=== PATIENT | male | born 1990 | race Caucasian/White ===

== ENCOUNTER 2020-06-03 09:01 | Outpatient (REF) | payer BC, SELFPAY | END 2020-06-03 09:02 | disposition home or self-care (01) | LOC: HO.LAB 09:01 | PROVIDERS: Visit Provider Internal Medicine | DX: Z20.828 Contact with and (suspected) exposure to other viral communicable diseases (principal) | CPT/HCPCS: C9803; U0003 ==

== ENCOUNTER 2020-07-16 17:08 | Outpatient (REF) | payer BC, SELFPAY | END 2020-07-16 17:09 | disposition home or self-care (01) | LOC: HO.LAB 17:08 | PROVIDERS: PCP Internal Medicine; Visit Provider Internal Medicine | DX: Z20.828 Contact with and (suspected) exposure to other viral communicable diseases (principal) | CPT/HCPCS: C9803; U0003 ==

== ENCOUNTER 2020-08-26 07:44 | Outpatient (REF) | payer BC, SELFPAY | END 2020-08-26 07:45 | disposition home or self-care (01) | LOC: HO.LAB 07:44 | PROVIDERS: Visit Provider Internal Medicine | DX: Z20.822 Contact with and (suspected) exposure to COVID-19 (principal) | CPT/HCPCS: 36415; C9803; U0003; U0005 ==

== ENCOUNTER 2020-09-16 10:31 | Outpatient (REF) | payer BC, SELFPAY | END 2020-09-16 10:32 | disposition home or self-care (01) | LOC: HO.LAB 10:31 | PROVIDERS: Visit Provider Internal Medicine | DX: Z20.822 Contact with and (suspected) exposure to COVID-19 (principal) | CPT/HCPCS: 36415; C9803; U0003; U0005 ==

== ENCOUNTER 2020-09-19 11:24 | Outpatient (REF) | payer BC, SELFPAY | END 2020-09-19 11:25 | disposition home or self-care (01) | LOC: HO.LAB 11:24 | PROVIDERS: Visit Provider Internal Medicine | DX: Z20.822 Contact with and (suspected) exposure to COVID-19 (principal) | CPT/HCPCS: 36415; C9803; U0003; U0005 ==

== ENCOUNTER 2020-10-17 08:35 | Outpatient (REF) | payer OTHER, SELFPAY ==
[2020-10-17 12:39] LABS: SARS COV2 PCR INHOUSE NEGATIVE (Negative)
== END 2020-10-17 08:36 | disposition home or self-care (01) ==
LOC: HO.LAB 08:35
PROVIDERS: Visit Provider Internal Medicine
DX: Z20.822 Contact with and (suspected) exposure to COVID-19 (principal)
CPT/HCPCS: C9803; U0003

== ENCOUNTER 2020-11-15 11:36 | Outpatient (REF) | payer OTHER, SELFPAY ==
[2020-11-15 11:47] LABS: COVID-19 Test Positive (Negative)
== END 2020-11-15 11:37 | disposition home or self-care (01) ==
LOC: HO.LAB 11:36
PROVIDERS: Visit Provider Internal Medicine
DX: Z20.822 Contact with and (suspected) exposure to COVID-19 (principal)
CPT/HCPCS: 36415; 87635; C9803

== ENCOUNTER 2020-11-26 13:21 | Outpatient (REF) | payer OTHER, SELFPAY ==
[2020-11-26 13:45] LABS: COVID-19 Test Positive (Negative)
== END 2020-11-26 13:22 | disposition home or self-care (01) ==
LOC: HO.LAB 13:21
PROVIDERS: Visit Provider Internal Medicine
DX: Z20.822 Contact with and (suspected) exposure to COVID-19 (principal)
CPT/HCPCS: 36415; 87635; C9803

== ENCOUNTER 2020-11-29 12:44 | Outpatient (REF) | payer OTHER, SELFPAY ==
[2020-11-29 12:57] LABS: COVID-19 Test Positive (Negative)
== END 2020-11-29 12:45 | disposition home or self-care (01) ==
LOC: HO.LAB 12:44
PROVIDERS: Visit Provider Internal Medicine
DX: Z20.822 Contact with and (suspected) exposure to COVID-19 (principal)
CPT/HCPCS: 36415; 87635; C9803

== ENCOUNTER 2020-12-06 12:07 | Outpatient (REF) | payer OTHER, SELFPAY ==
[2020-12-06 12:28] LABS: COVID-19 Test Negative (Negative); IDNOW Serial# 55D5AD1C
== END 2020-12-06 12:08 | disposition home or self-care (01) ==
LOC: HO.LAB 12:07
PROVIDERS: Visit Provider Internal Medicine
DX: Z20.822 Contact with and (suspected) exposure to COVID-19 (principal)
CPT/HCPCS: 36415; 87635; C9803

== ENCOUNTER 2020-12-09 11:31 | Outpatient (REF) | payer OTHER, SELFPAY ==
[2020-12-09 11:48] LABS: COVID-19 Test Negative (Negative)
== END 2020-12-09 11:32 | disposition home or self-care (01) ==
LOC: HO.LAB 11:31
PROVIDERS: Visit Provider Internal Medicine
DX: Z20.822 Contact with and (suspected) exposure to COVID-19 (principal)
CPT/HCPCS: 36415; 87635; C9803

== ENCOUNTER 2020-12-10 12:10 | Outpatient (REF) | payer OTHER, SELFPAY ==
[2020-12-10 12:28] LABS: COVID-19 Test Negative (Negative); IDNOW Serial# 55D5AD1C
== END 2020-12-10 12:11 | disposition home or self-care (01) ==
LOC: HO.LAB 12:10
PROVIDERS: Visit Provider Internal Medicine
DX: Z20.822 Contact with and (suspected) exposure to COVID-19 (principal)
CPT/HCPCS: 36415; 87635; C9803

== ENCOUNTER 2021-07-01 11:40 | Outpatient (REF) | payer OTHER, SELFPAY | END 2021-07-01 11:41 | disposition home or self-care (01) | LOC: HO.LAB 11:40 | PROVIDERS: Visit Provider Internal Medicine | DX: Z20.822 Contact with and (suspected) exposure to COVID-19 (principal) | CPT/HCPCS: C9803; U0003; U0005 ==

== ENCOUNTER → 2021-07-21 10:35 | Outpatient (BNVA) | payer OTHER, SELFPAY | PROVIDERS: PCP Internal Medicine; Visit Provider Nurse Practitioner Family ==

== ENCOUNTER → 2021-08-21 11:07 | Outpatient (BNVA) | payer OTHER, SELFPAY | PROVIDERS: PCP Internal Medicine; Visit Provider Nurse Practitioner Family | DX: F07.81 Postconcussional syndrome (principal); G47.9 Sleep disorder, unspecified | CPT/HCPCS: 99212 ==

== ENCOUNTER → 2021-10-29 12:51 | Outpatient (REF) | payer OTHER, SELFPAY | LOC: HO.SL 12:51 | PROVIDERS: Visit Provider Nurse Practitioner Family | DX: G47.19 Other hypersomnia (principal); R06.83 Snoring; G47.9 Sleep disorder, unspecified | CPT/HCPCS: 95806 ==

== ENCOUNTER → 2021-11-10 14:00 | Outpatient (BNVA) | payer OTHER, SELFPAY | PROVIDERS: Visit Provider Nurse Practitioner Family | DX: G47.9 Sleep disorder, unspecified (principal); R06.83 Snoring; G47.19 Other hypersomnia ==

== ENCOUNTER → 2021-11-27 09:58 | Outpatient (BNVA) | payer OTHER, SELFPAY | PROVIDERS: PCP Physician Assistant; Visit Provider Nurse Practitioner Family | DX: G47.9 Sleep disorder, unspecified (principal); R06.83 Snoring; G47.19 Other hypersomnia | CPT/HCPCS: 99212 ==

== ENCOUNTER 2024-04-19 22:38 | Emergency (ER) | payer BC, SELFPAY ==
--- NOTE | ~2024-04-19 | XR_ITS ---
EXAMINATION: XR CHEST CLINICAL INFORMATION: Cough. COMPARISON: Chest 04/25/2018 TECHNIQUE: Frontal view of the chest was obtained. FINDINGS: Normal appearance of the cardiomediastinal structures. No effusions or pneumothoraces. No focal pulmonary consolidation. Normal pattern of pulmonary vasculature. XR/XR chest 1V IMPRESSION: No cardiopulmonary abnormalities identified. Electronically signed by: Craig Ashley MD 04/20/2024 02:32 AM EDT
[2024-04-19 22:42] VITALS: BP 127/76; PULSE 89; RESP 16; TEMP 36.9; O2SAT 95; BMI 39.0
[2024-04-19 23:04] LABS: MANUAL DIFF FLAG NO
[2024-04-19 23:07] LABS: Basophils Absolute Auto 0.1 X10*3/uL (0.0-0.2); Basophils Percent Auto 0.5 % (0-2); Eosinophils Absolute Auto 0.3 X10*3/uL (0.0-0.4); Eosinophils Percent Auto 2.2 % (0-4); Hematocrit 44.4 % (42.0-52.0); Hemoglobin 15.1 g/dl (14.0-18.0); Imm Gran Abs Auto 0.05 X10*3/uL (0.00-0.03); Imm Gran Pct Auto 0.3 % (0.0-0.4); Lymphocytes Absolute Auto 2.8 X10*3/uL (1.2-4.9); Mean Corpuscular Hemoglobin 30.1 pg (27.0-33.0); Mean Corpuscular Volume 88.6 fL (80.0-98.0); Mean Platelet Volume 8.6 fL (9.4-12.4); Monocytes Absolute Auto 1.3 X10*3/uL (0.1-1.2); Monocytes Percent Auto 8.5 % (2-11); Neutrophils Absolute Auto 10.8 x10*3/uL (2.0-8.3); Neutrophils Percent Auto 70.5 % (45-73); Platelet Count 336 X10*3/uL (160-400); Red Blood Count 5.01 X10*6/uL (4.60-5.80); Red Cell Distribution Width 12.5 % (11.0-16.0); White Blood Count 15.4 X10*3/uL (4.8-10.8)
[2024-04-19 23:25] LABS: Anion Gap 13 (12-20); Blood Urea Nitrogen 20 mg/dL (9-16); Calcium 9.4 mg/dL (8.4-10.2); Carbon Dioxide 24 mmol/L (22-29); Chloride 108 mmol/L (96-108); Creatinine Clr Calc Pharmacy 152.1; Estimated Glomerular Filt Rate > 60; Glucose Random 97 mg/dL (60-115); Potassium 4.2 mmol/L (3.3-5.1); Sodium 141 mmol/L (135-145)
[2024-04-19 23:45] LABS: IDNOW Serial# 08D9AD1C; Influenza A PCR NEGATIVE (Negative); Influenza B PCR NEGATIVE (Negative); Resp Syncy Virus RNA Qual PCR NEGATIVE (Negative); SARS COV2 PCR INHOUSE NEGATIVE (Negative); Strep A Nucleic Acid Negative (Negative)
--- NOTE | 2024-04-20 00:40 | ED.GENADULT ---
HPI - General Adult General Chief complaint: General Medical Stated complaint: 'sick as a dog' Time Seen by Provider: 04/20/24 00:35 Source: patient and old records reviewed Mode of arrival: ambulatory Limitations: no limitations History of Present Illness ED Provider: KANG PINEDA narrative: 33 yo male with PMH of ESTELA, prior bariatric surgery here with c/o his son being sick recently and doing okay but he has been sick for the past few days with cough, sore throat, sinus pressure, loose stools. Denies travel history. He is able to eat and drink. He states he feels terrible. He has taken OTC meds and tylenol. MD complaint: URI symptoms Onset (ago): day(s) (few) Location: face, mouth and chest Radiation: non-radiation Severity: moderate Quality: aching and dull Pain Consistency: constant Relieving factors: none Exacerbating factors: other (swallowing, coughing) Associated symptoms: cough, fever/chills, headaches and malaise Treatments prior to arrival: cold therapy Related Data Home Medications ?Medication ?Instructions ?Recorded ?Confirmed cyproheptadine 4 mg tablet See Rx Instructions PO BEDTIME 07/16/21 11/27/21 multivitamin (Daily-Eun tablet) 1 tab PO DAILY 07/16/21 11/27/21 naratriptan 2.5 mg tablet See Rx Instructions PO .COMPLEX 07/16/21 11/27/21 rizatriptan 5 mg tablet See Rx Instructions PO .COMPLEX 07/16/21 11/27/21 sertraline 25 mg tablet (Zoloft) 25 mg PO DAILY 07/16/21 11/27/21 propranolol 10 mg tablet 20 mg PO BID 07/21/21 11/27/21 Previous Rx's ?Medication ?Instructions ?Recorded onabotulinumtoxinA 200 unit 155 unit IM .COMPLEX 12 weeks #1 ea 11/27/21 solution for injection (Botox) albuterol sulfate 90 mcg/actuation 2 puff inhalation QID PRN 04/20/24 aerosol inhaler shortness of breath or wheezing #6.7 grams amoxicillin 875 mg-potassium 1 tab PO BID #13 tabs 04/20/24 clavulanate 125 mg tablet Allergies Allergy/AdvReac Type Severity Reaction Status Date / Time No Known Allergies Allergy Verified 04/19/24 22:44 [No Known Allergies*] Review of Systems Review of Systems: Constitutional : pos Fever, pos Chills ENT/Mouth : No Hoarseness, pos sore throat, pos Rhinorrhea Eyes: No Redness, No Discharge, No Vision Changes Cardiovascular : No Chest Pain, positive SOB, No Edema Respiratory : positive Cough, No Sputum, positive Wheezing, Gastrointestinal : No Nausea, No Vomiting, pos Diarrhea, No abdominal Pain Genitourinary : No Dysuria, No Hematuria Musculoskeletal : No joint pain, No Myalgias Skin : No rash Neuro : No Weakness, No Numbness, No Headache All other systems reviewed and are negative FOR[facility], [facility] Past Medical History Attestation statement: The following information was validated with the patient. Source: old records reviewed Medical History ESTELA (obstructive sleep apnea) Surgical History S/P gastric sleeve procedure Family History Family History Father Pacemaker Mother No problems noted. Social History Social History Alcohol intake: current Alcohol intake frequency: a few times a month Patient Tobacco Use Status: Current everyday Tobacco user Cigarette Packs Per Day: 0.5 Cigarettes Per Day: 10 Years Smoked: 20 +/- Advance Directives: No Advance Directives Information Provided: Yes Physical Exam ED Vital Signs: Vital Signs - 24 hr 04/19/24 22:42 04/20/24 01:08 Temperature 98.5 F 98.8 F Pulse Rate 89 84 Respiratory Rate 16 16 Blood Pressure 127/76 120/55 L Pulse Oximetry 95 99 Oxygen Delivery Method Room Air Room Air BMI result Body Mass Index 39.0 Appearance: Alert. Oriented X3. No acute distress. Eyes: Pupils equal, round and reactive to light. ENT: Pharynx erythema noted bilateral tonsils no exudates, R TM red bulging and fluid behind ear drum no perforation noted, bilateral max sinus ttp Neck: Normal inspection. Neck supple. CVS: Normal heart rate and rhythm. Pulses normal. Respiratory: No respiratory distress. Breath sounds rhonchi noted dry cough noted Abdomen: Soft and nontender. Skin: Skin warm and dry. Normal skin color. Normal skin turgor. Extremities: No lower extremity edema. No calf ttp Neuro: Oriented X 3. No motor deficit. No sensory deficit. Medications Administered Discontinued Medications Generic Name Dose Route Start Last Admin Trade Name Rakesh PRN Reason Stop Dose Admin Albuterol Sulfate 2 puff 04/20/24 00:49 04/20/24 01:09 Albuterol Sulfate 90 Mcg 8 Gm Inhaler INHALE 04/20/24 00:50 2 puff ONCE ONE Administration Medical Decision Making Medical Decision Making [facility] Narrative: 33 yo male with PMH of ESTELA, prior bariatric surgery here with c/o dry cough, diarrhea, sinus pain, sore throat at this time will need CXR and viral panel - start on dexamethasone, INH, R TM is infected - oral augmentin ordered Differential Diagnosis Differential Diagnoses: The differential diagnosis associated with the presentation includes viral syndrome, sinusitis, bronchitis, pneumonia Admission/Observation Consideration of admission/observation: Escalation of care including admission/observation considered not toxic, tolerating PO stable for outpatient management Lab Data [facility] Lab Attestation statement: I reviewed the patient's lab results. 04/19/24 22:58 04/19/24 22:58 Labs: Lab Results 04/19/24 Range/Units 22:58 WBC 15.4 H (4.8-10.8) X10*3/uL RBC 5.01 (4.60-5.80) X10*6/uL Hgb 15.1 (14.0-18.0) g/dl Hct 44.4 (42.0-52.0) % MCV 88.6 (80.0-98.0) fL MCH 30.1 (27.0-33.0) pg MCHC 34.0 (31.0-36.0) g/dl RDW 12.5 (11.0-16.0) % Plt Count 336 (160-400) X10*3/uL MPV 8.6 L (9.4-12.4) fL Immature Gran % (Auto) 0.3 (0.0-0.4) % Neut % (Auto) 70.5 (45-73) % Lymph % (Auto) 18.0 L (20-40) % Troup % (Auto) 8.5 (2-11) % Eos % (Auto) 2.2 (0-4) % Baso % (Auto) 0.5 (0-2) % Lymph # (Auto) 2.8 (1.2-4.9) X10*3/uL Troup # (Auto) 1.3 H (0.1-1.2) X10*3/uL Eos # (Auto) 0.3 (0.0-0.4) X10*3/uL Baso # (Auto) 0.1 (0.0-0.2) X10*3/uL Abs Immat Gran (auto) 0.05 H (0.00-0.03) X10*3/uL Absolute Neuts (auto) 10.8 H (2.0-8.3) x10*3/uL Absolute Nucleated RBC 0.000 (0.0-0.012) X10*3/uL Nucleated RBC % (auto) 0.0 (0.0-0.2) /100WBC Sodium 141 (135-145) mmol/L Potassium 4.2 (3.3-5.1) mmol/L Chloride 108 (96-108) mmol/L Carbon Dioxide 24 (22-29) mmol/L Anion Gap 13 (12-20) BUN 20 H (9-16) mg/dL Creatinine 0.92 (0.5-1.4) mg/dL Estim Creat Clear Calc 152.1 Estimated GFR > 60 Random Glucose 97 (60-115) mg/dL Calcium 9.4 (8.4-10.2) mg/dL Influenza Type A (PCR) NEGATIVE (Negative) Influenza Type B (PCR) NEGATIVE (Negative) RSV RNA Qual (PCR) NEGATIVE (Negative) SARS-CoV-2 RNA (RT-PCR) NEGATIVE (Negative) S. pyogenes GrpA HENNA Negative (Negative) Independent Interpretation I performed an independent interpretation of an: Plain X-Ray Radiology Impression Discussion of test interpretation with radiology: I have reviewed the radiologist's reading. External Record Review External record reviewed: Office record Prescription Management I considered prescription management with: Antibiotic and Other Discharge Plan Discharge Clinical Impression: Acute viral syndrome, Bronchitis Otitis media Qualifiers: Otitis media type: suppurative Chronicity: acute Laterality: right Recurrence: non-recurrent Spontaneous tympanic membrane rupture: without spontaneous rupture Qualified Code(s): H66.001 - Acute suppurative otitis media without spontaneous rupture of ear drum, right ear Patient Disposition: Home, Self-Care Instructions: Ear Infection (ED), Acute Bronchitis (ED), Viral Syndrome (ED) Additional Instructions: return for any worsening symptoms or concerns stay hydrated, rest covid, flu, rsv swabs negative Prescriptions: New albuterol sulfate 90 mcg/actuation HFA aerosol inhaler 2 puff inhalation QID PRN (Reason: shortness of breath or wheezing) Qty: 6.7 0RF amoxicillin-pot clavulanate 875-125 mg tablet 1 tab PO BID Qty: 13 0RF No Action Botox 200 unit recon soln 155 unit IM .COMPLEX 84 Days Qty: 1 3RF Rx Instructions: 155 units (5 units across 31 sites over scalp and neck) IM q 12 weeks cyproheptadine 4 mg tablet See Rx Instructions PO BEDTIME Rx Instructions: 1-2 tabs QHS PO bedtime; multivitamin [Daily-Eun] Tablet 1 tab PO DAILY naratriptan 2.5 mg tablet See Rx Instructions PO .COMPLEX Rx Instructions: take 1 tab at onset of headache; if no relief may repeat 1 tab after at least 4 hrs; max = 2 tabs/24 hrs PO rizatriptan 5 mg tablet See Rx Instructions PO .COMPLEX Rx Instructions: take 1 tablet at onset of headache; if no relief, may repeat 1 tablet after at least 2 hrs PO sertraline [Zoloft] 25 mg tablet 25 mg PO DAILY propranolol 10 mg tablet 20 mg PO BID Stand Alone Forms: Work/School Release Print Language: Faroese
[2024-04-20 01:08] VITALS: BP 120/55; PULSE 84; RESP 16; TEMP 37.1; O2SAT 99
[2024-04-20] MEDS: Albuterol Sulfate 90 MCG 8 GM INHALER 2 PUFF INHALE (01:09)
[2024-04-20] MEDS: dexAMETHasone sod phosphate 4 MG/ML VIAL 8 MG PO (02:29)
[2024-04-20] MEDS: Amoxicillin/Potassium Clav 875 MG TABLET PO (02:29)
[2024-04-20 02:37] VITALS: BP 120/75; PULSE 89; RESP 89; TEMP 36.9; O2SAT 98
== END 2024-04-20 02:38 | disposition home or self-care (01) ==
PROVIDERS: Emergency Provider Emergency Medicine; PCP Physician Assistant
DX: B34.9 Viral infection, unspecified (principal); J40 Bronchitis, not specified as acute or chronic; H66.001 Acute suppurative otitis media without spontaneous rupture of ear drum, right ear; R05.9 Cough, unspecified; Z03.818 Encounter for observation for suspected exposure to other biological agents ruled out; Z79.899 Other long term (current) drug therapy
CPT/HCPCS: 0241U; 71045; 80048; 85025; 87651; 99284; J1100